=== PATIENT | female | born 1955 ===

== ENCOUNTER 2016-12-24 22:29 | Emergency (ER) | payer OTHER ==
[2016-12-24 22:44] VITALS: BP 141/86; PULSE 84; RESP 16; TEMP 97.9; O2SAT 99
--- NOTE | 2016-12-25 00:20 | ED PDOC ---
Lower Extremity Pain/Injury Time Seen by Provider: 12/25/16 00:00 Chief Complaint (Nursing): Lower Extremity Problem/Injury Chief Complaint (Provider): LE pain History Per: Patient History/Exam Limitations: no limitations Onset/Duration Of Symptoms: Days (3) Additional Complaint(s): 61yo F in Ed with hx of arthritis in Ed c/o left knee-noted after "cracking" knee and noted swelling to medial side of knee with pain on ranging and climibing. no bug bies, no fever no chills. Past Medical History Reviewed: Historical Data, Nursing Documentation, Vital Signs Vital Signs: Last Vital Signs Temp 97.9 F 12/24/16 22:41 Pulse 84 12/24/16 22:41 Resp 16 12/24/16 22:41 BP 141/86 12/24/16 22:41 Pulse Ox 99 12/24/16 22:41 - Medical History PMH: No Chronic Diseases - Family History Family History: States: No Known Family Hx - Home Medications Home Medications: Ambulatory Orders Medication Instructions Recorded Diclofenac Sodium [Pennsaid] 2 gm TP DAILY #2 soln.pk.g. 12/25/16 Ibuprofen [Motrin] 400 mg PO Q6 #30 tab 12/25/16 - Allergies Allergies/Adverse Reactions: Allergies Allergy/AdvReac Type Severity Reaction Status Date / Time No Known Allergies Allergy Verified 12/24/16 22:41 Wells Criteria for PE - Wells Criteria for Pulmonary Embolism Clinical Signs and Symptoms of DVT: No P.E is #1 Diagnosis, or Equally Likely: No Heart Rate >100: No Immobilization at least 3 days;Surgery previous 4 weeks: No Previous, objectively diagnosed PE or DVT: No Hemoptysis: No Malignancy w/treatment within 6 months, or palliative: No Total Score: 0 Review of Systems ROS Statement: Except As Marked, All Systems Reviewed And Found Negative Musculoskeletal: Positive for: Other (knee pain) Physical Exam - Reviewed Nursing Documentation Reviewed: Yes Vital Signs Reviewed: Yes - Physical Exam Appears: Positive for: Well, Non-toxic, No Acute Distress Head Exam: Positive for: ATRAUMATIC, NORMAL INSPECTION, NORMOCEPHALIC Cardiovascular/Chest: Positive for: Regular Rate, Rhythm Respiratory: Positive for: CNT, Normal Breath Sounds Extremity: Positive for: Other (left knee: mild swelling noted to medial aspect of knee. FROM but tendenr nuerovasc intact. no calf tenderness. ) Neurologic/Psych: Positive for: Alert, Oriented - ECG O2 Sat by Pulse Oximetry: 99 - Radiology X-Ray: Interpreted by Me (avulsion fx noted ?age. ) - Progress ED Course And Treament: pt will xray and torodol IM Medical Decision Making Medical Decision Making: pt will get knee immobilizer and Rx for cane, naproxen for pain and pennsaid advised strongly to f.u with orhtopedics. pt understands Disposition - Clinical Impression Clinical Impression: Knee pain - Patient ED Disposition Is Patient to be Admitted: No Counseled Patient/Family Regarding: Studies Performed, Diagnosis, Need For Followup, Rx Given - Disposition Disposition: Routine/Home Disposition Time: 00:23 Condition: STABLE Prescriptions: Diclofenac Sodium [Pennsaid] 2 gm TP DAILY #2 soln.pk.g. Ibuprofen [Motrin] 400 mg PO Q6 #30 tab Instructions: Knee Pain (ED), Arthralgia (ED), Knee Exercises (GEN)
--- NOTE | 2016-12-25 11:00 | RAD ---
PROCEDURE: Left Knee Radiographs. HISTORY: Pain. No history of recent/ related trauma provided COMPARISON: None. FINDINGS: BONES: Normal. No fracture. JOINTS: Normal. No osteoarthritis. JOINT EFFUSION: None. OTHER FINDINGS: None. IMPRESSION: No acute findings related to/accounting for the clinical presentation.
== END 2016-12-25 02:36 | disposition home or self-care (01) ==
LOC: H.ER 22:29
DX: M25.562 Pain in left knee (principal)